=== PATIENT | male | born 1990 | race Caucasian/White ===

== ENCOUNTER 2023-03-01 11:18 | Emergency (ER) | payer MEDICAID ==
[~2023-03-01] VITALS: Ht 170.2 cm; Wt 63.6 kg
[2023-03-01 11:28] VITALS: BP 161/98
--- NOTE | 2023-03-01 13:54 | NUR ---
pt presents to the er with complaints laceration to left hand, pain level 4/10. cms intact.
[2023-03-01] MEDS ORDERED: bacitracin 15gm ointment TP ONE (14:35)
[2023-03-01] MEDS ORDERED: LIDOcaine 1% W/epiNEPHrine 1:100,000 20ml vial IJ ONE (14:40)
[2023-03-01] MEDS ORDERED: CEPH250T PO (15:47)
== END 2023-03-01 16:04 | disposition home or self-care (01) ==
LOC: ER 11:18
DX: S61.213A Laceration without foreign body of left middle finger without damage to nail, initial encounter (principal); F17.200 Nicotine dependence, unspecified, uncomplicated; X58.XXXA Exposure to other specified factors, initial encounter; Y93.89 Activity, other specified; Y92.89 Other specified places as the place of occurrence of the external cause; Y99.8 Other external cause status
CPT/HCPCS: 12001; 73130; 99283; A6222; J7030; A6449

== ENCOUNTER 2023-03-10 12:15 | Emergency (ER) | payer MEDICAID ==
[~2023-03-10] VITALS: Ht 170.2 cm; Wt 60.0 kg
[2023-03-10 12:23] VITALS: BP 153/94
== END 2023-03-10 12:36 | disposition home or self-care (01) ==
LOC: ER 12:15
DX: S61.213D Laceration without foreign body of left middle finger without damage to nail, subsequent encounter (principal); Z48.00 Encounter for change or removal of nonsurgical wound dressing; X58.XXXD Exposure to other specified factors, subsequent encounter
CPT/HCPCS: 99281